=== PATIENT | male | born 1975 | race African-American/Black ===

== ENCOUNTER 2022-06-10 21:43 | Emergency (ER) | payer OTHER ==
[2022-06-10] MEDS ORDERED: IBUPROFEN 800 MG TAB PO STA (22:10)
[2022-06-10] MEDS ORDERED: SODIUM CHLORIDE 0.9% 500 ML 500 ML IV STA (22:16)
[2022-06-10] MEDS ORDERED: MORPHINE SULFATE 4 MG/ML SYRINGE IVP STA (22:17)
[2022-06-10 22:35] LABS: Basophils % (A) 0 %; Eosinophils # (A) 0.1 k/uL (0-0.7); Eosinophils % (A) 2 %; HGB 14.9 gm/dL (13.0-17.5); Lymphocytes # (A) 0.5 k/uL (1.0-4.8); Lymphocytes % (A) 5 %; MCH 30.4 pg (25.0-35.0); MCHC 34.6 g/dL (31.0-37.0); Mean Platelet Volume 7.4; Monocytes # (A) 0.3 k/uL (0-1.0); Monocytes % (A) 4 %; Neutrophils # (A) 7.2 k/uL (1.3-7.7); Neutrophils % (A) 88 %; Platelet Count 259 k/uL (150-450); RBC 4.88 m/uL (4.30-5.90); RDW 13.4 % (11.5-15.5); WBC 8.3 k/uL (3.8-10.6)
--- NOTE | 2022-06-10 22:35 | ED ---
General Adult HPI <Caleb Howell - Last Filed: 06/11/22 00:29> - General Source: patient Mode of arrival: wheelchair Limitations: no limitations <Silvia Cohen - Last Filed: 06/11/22 10:04> - General Chief complaint: Upper Respiratory Infection Stated complaint: Chest pain/SOB Time Seen by Provider: 06/10/22 21:56 - History of Present Illness Initial comments: 47-year-old male past medical history of asthma who presents to the emergency department with shortness of breath. States that his symptoms started this morning. He reports a nonproductive cough, congestion and shortness of breath. He attempted use his nebulizer without any improvement in his symptoms. He has a fever. He took some TheraFlu. Denies taking any other medications for his fever. He denies any sick contacts with similar symptoms. Admits to chest wall pain bilaterally from coughing. No cardiac history. Denies any calf pain or swelling. No nausea or vomiting. Denies ear pain or sore throat. No neck pain or abdominal pain. He wears a C-pap at night. No other alleviating, precipitating or modifying factors (Silvia Cohen) - Related Data Home Medications Medication Instructions Recorded Confirmed No Known Home Medications 06/10/22 06/10/22 Allergies Allergy/AdvReac Type Severity Reaction Status Date / Time No Known Allergies Allergy Verified 06/10/22 22:29 Review of Systems ROS Other: All systems not noted in ROS Statement are negative. <Caleb Howell - Last Filed: 06/11/22 00:29> ROS Other: All systems not noted in ROS Statement are negative. <Silvia Cohen - Last Filed: 06/11/22 10:04> ROS Statement: Those systems with pertinent positive or pertinent negative responses have been documented in the HPI. Past Medical History Past Medical History: No Reported History History of Any Multi-Drug Resistant Organisms: None Reported Past Surgical History: No Surgical Hx Reported Past Psychological History: No Psychological Hx Reported Smoking Status: Current every day smoker Past Alcohol Use History: Occasional Past Drug Use History: None Reported <Silvia Cohen - Last Filed: 06/11/22 10:04> General Exam General appearance: alert, in no apparent distress, anxious Head exam: Present: atraumatic, normocephalic, normal inspection Eye exam: Present: normal appearance, PERRL, EOMI. Absent: scleral icterus, conjunctival injection, periorbital swelling ENT exam: Present: normal exam, mucous membranes moist Neck exam: Present: normal inspection. Absent: tenderness, meningismus, lymphadenopathy Respiratory exam: Present: normal lung sounds bilaterally, wheezes, accessory muscle use, decreased breath sounds, prolonged expiratory. Absent: respiratory distress, rales, rhonchi, stridor Cardiovascular Exam: Present: normal rhythm, tachycardia, normal heart sounds. Absent: systolic murmur, diastolic murmur, rubs, gallop, clicks GI/Abdominal exam: Present: soft, normal bowel sounds. Absent: distended, tenderness, guarding, rebound, rigid Extremities exam: Present: normal inspection, full ROM, normal capillary refill. Absent: tenderness, pedal edema, joint swelling, calf tenderness Back exam: Present: normal inspection Neurological exam: Present: alert, oriented X3, CN II-XII intact Psychiatric exam: Present: normal affect, normal mood Skin exam: Present: warm, dry, intact, normal color. Absent: rash <Caleb Howell B - Last Filed: 06/11/22 00:29> Limitations: no limitations General appearance: alert, in no apparent distress Head exam: Present: atraumatic, normocephalic, normal inspection Eye exam: Present: normal appearance, PERRL, EOMI. Absent: scleral icterus, conjunctival injection, periorbital swelling ENT exam: Present: normal exam, mucous membranes moist Neck exam: Present: normal inspection. Absent: tenderness, meningismus, lymphadenopathy Respiratory exam: Present: wheezes (at bases), chest wall tenderness (bilaterally below both costophrenic angles), accessory muscle use, other (tachypnia). Absent: respiratory distress, rales, rhonchi, stridor Cardiovascular Exam: Present: normal rhythm, tachycardia, normal heart sounds. Absent: systolic murmur, diastolic murmur, rubs, gallop, clicks GI/Abdominal exam: Present: soft, normal bowel sounds. Absent: distended, tenderness, guarding, rebound, rigid Extremities exam: Present: normal inspection, full ROM, normal capillary refill. Absent: tenderness, pedal edema, joint swelling, calf tenderness Back exam: Present: normal inspection Neurological exam: Present: alert, oriented X3, CN II-XII intact Psychiatric exam: Present: normal affect, normal mood Skin exam: Present: warm, dry, intact, normal color. Absent: rash <Silvia Cohen - Last Filed: 06/11/22 10:04> Course <Caleb Howell - Last Filed: 06/11/22 00:29> Vital Signs 06/10/22 06/10/22 06/10/22 21:51 22:04 22:08 Temperature 102.7 F H 102 F H Pulse Rate 103 H 110 H Respiratory 22 20 24 Rate Blood Pressure 169/84 138/77 O2 Sat by Pulse 93 L 95 Oximetry 06/10/22 06/10/22 06/10/22 23:00 23:16 23:19 Temperature Pulse Rate 100 108 H 104 H Respiratory 20 Rate Blood Pressure 95/60 O2 Sat by Pulse 99 Oximetry 06/11/22 06/11/22 06/11/22 00:31 00:32 00:40 Temperature 99.8 F H Pulse Rate 90 95 82 Respiratory 26 H Rate Blood Pressure 100/60 O2 Sat by Pulse 97 Oximetry - Reevaluation(s) Reevaluation #1: 06/11/22 00:13 medical records reviewed (Caleb Howell) Reevaluation #2: 06/11/22 00:13 Patient informed of results and questions are answered (Caleb Howell) - Consultations Consultation #1: Spoke with admitting physicians who agree to admit this patient (Caleb Howell) EKG Findings - EKG Comments: EKG Findings:: A 12-lead EKG was performed and interpreted by me as showing the following: Rate is 103, and rhythm is normal sinus. There are normal QRS complexes and normal R-wave progression. IN interval 177. QRS 85. Qtc 386. Inverted t wave 2, 3, avf, v5-v6. <Silvia Cohen - Last Filed: 06/11/22 10:04> Medical Decision Making - Lab Data Result diagrams: 06/10/22 22:19 06/10/22 22:19 - Radiology Data Radiology results: report reviewed (Chest x-rays negative for acute disease), image reviewed <Caleb Howell - Last Filed: 06/11/22 00:29> - Lab Data Result diagrams: 06/10/22 22:19 06/10/22 22:19 <Silvia Cohen - Last Filed: 06/11/22 10:04> - Medical Decision Making 47 male persistent fever shortness of breath cough or congestion COPD exacerbation complicated with pneumonia.. Dehydrated and decreasing blood pressure. Patient will be admitted for supportive care (Caleb Howell) Upon arrival patient was placed into room 8. A thorough history and physical exam was performed. IV access is established. He is given a liter bolus of normal saline. He is also given 800 mg of Tylenol for fever and 4 mg of morphine for pain control. Laboratory studies are conducted. Patient is swabbed for covid and influenza. 12-lead EKG was performed. Chest x-ray is ordered. He will be signed out to Dr. Howell for further evaluation and renny mcdonald. (Silvia Cohen) - Lab Data Lab Results 06/10/22 06/10/22 06/10/22 Range/Units 22:04 22:04 22:19 WBC 8.3 (3.8-10.6) k/uL RBC 4.88 (4.30-5.90) m/uL Hgb 14.9 (13.0-17.5) gm/dL Hct 43.0 (39.0-53.0) % MCV 88.0 (80.0-100.0) fL MCH 30.4 (25.0-35.0) pg MCHC 34.6 (31.0-37.0) g/dL RDW 13.4 (11.5-15.5) % Plt Count 259 (150-450) k/uL MPV 7.4 Neutrophils % 88 % Lymphocytes % 5 % Monocytes % 4 % Eosinophils % 2 % Basophils % 0 % Neutrophils # 7.2 (1.3-7.7) k/uL Lymphocytes # 0.5 L (1.0-4.8) k/uL Monocytes # 0.3 (0-1.0) k/uL Eosinophils # 0.1 (0-0.7) k/uL Basophils # 0.0 (0-0.2) k/uL PT (9.0-12.0) sec INR (<1.2) APTT (22.0-30.0) sec Sodium (137-145) mmol/L Potassium (3.5-5.1) mmol/L Chloride (98-107) mmol/L Carbon Dioxide (22-30) mmol/L Anion Gap mmol/L BUN (9-20) mg/dL Creatinine (0.66-1.25) mg/dL Est GFR (CKD-EPI)AfAm (>60 ml/min/1.73 sqM) Est GFR (CKD-EPI)NonAf (>60 ml/min/1.73 sqM) Glucose (74-99) mg/dL Calcium (8.4-10.2) mg/dL Total Bilirubin (0.2-1.3) mg/dL AST (17-59) U/L ALT (4-49) U/L Alkaline Phosphatase (38-126) U/L Troponin I (0.000-0.034) ng/mL Total Protein (6.3-8.2) g/dL Albumin (3.5-5.0) g/dL Coronavirus (PCR) Not Detected (Not Detectd) Influenza Type A RNA Detected H (Not Detectd) Influenza Type B (PCR) Not Detected (Not Detectd) 06/10/22 06/10/22 06/10/22 Range/Units 22:19 22:19 22:19 WBC (3.8-10.6) k/uL RBC (4.30-5.90) m/uL Hgb (13.0-17.5) gm/dL Hct (39.0-53.0) % MCV (80.0-100.0) fL MCH (25.0-35.0) pg MCHC (31.0-37.0) g/dL RDW (11.5-15.5) % Plt Count (150-450) k/uL MPV Neutrophils % % Lymphocytes % % Monocytes % % Eosinophils % % Basophils % % Neutrophils # (1.3-7.7) k/uL Lymphocytes # (1.0-4.8) k/uL Monocytes # (0-1.0) k/uL Eosinophils # (0-0.7) k/uL Basophils # (0-0.2) k/uL PT 10.1 (9.0-12.0) sec INR 0.9 (<1.2) APTT 27.8 (22.0-30.0) sec Sodium 139 (137-145) mmol/L Potassium 4.2 (3.5-5.1) mmol/L Chloride 104 (98-107) mmol/L Carbon Dioxide 26 (22-30) mmol/L Anion Gap 9 mmol/L BUN 16 (9-20) mg/dL Creatinine 1.33 H (0.66-1.25) mg/dL Est GFR (CKD-EPI)AfAm 74 (>60 ml/min/1.73 sqM) Est GFR (CKD-EPI)NonAf 64 (>60 ml/min/1.73 sqM) Glucose 117 H (74-99) mg/dL Calcium 9.1 (8.4-10.2) mg/dL Total Bilirubin 0.6 (0.2-1.3) mg/dL AST 41 (17-59) U/L ALT 53 H (4-49) U/L Alkaline Phosphatase 96 (38-126) U/L Troponin I <0.012 (0.000-0.034) ng/mL Total Protein 7.4 (6.3-8.2) g/dL Albumin 4.4 (3.5-5.0) g/dL Coronavirus (PCR) (Not Detectd) Influenza Type A RNA (Not Detectd) Influenza Type B (PCR) (Not Detectd) Disposition Is patient prescribed a controlled substance at d/c from ED?: No Time of Disposition: 00:30 <Caleb Howell - Last Filed: 06/11/22 00:29> <Silvia Cohen - Last Filed: 06/11/22 10:04> Clinical Impression: Influenza, Fever, Bronchitis, Acute exacerbation of COPD with asthma Disposition: ADMITTED IP TO THIS HOSP Condition: Fair Instructions (If sedation given, give patient instructions): Influenza (ED) Referrals: None,Stated [Primary Care Provider] - 1-2 days
[2022-06-10 22:46] LABS: Albumin 4.4 g/dL (3.5-5.0); Calcium 9.1 mg/dL (8.4-10.2); Potassium 4.2 mmol/L (3.5-5.1); Total Bilirubin 0.6 mg/dL (0.2-1.3); Total Protein 7.4 g/dL (6.3-8.2)
[2022-06-10 22:51] LABS: INR 0.9 (<1.2); Partial Thromboplastin Time 27.8 sec (22.0-30.0); Prothrombin Time 10.1 sec (9.0-12.0)
[2022-06-10] MEDS ORDERED: OSELTAMIVIR 75 MG CAP PO STA (23:07)
[2022-06-10] MEDS ORDERED: methylPREDNISolone SOD SUCCI 125 MG/2 ML VIAL IV STA (23:07)
[2022-06-10] MEDS ORDERED: SODIUM CHLORIDE 0.9% 500 ML 500 ML IV ONE (23:07)
[2022-06-10] MEDS ORDERED: IPRATROPIUM-ALBUTEROL 3 ML NEB INHALATION STA (23:07)
[2022-06-11] MEDS ORDERED: IPRATROPIUM-ALBUTEROL 3 ML NEB INHALATION STA (00:17)
[2022-06-11] MEDS ORDERED: ACETAMINOPHEN TAB 500 MG TAB PO STA (00:17)
--- NOTE | 2022-06-11 00:22 | XR ---
EXAMINATION TYPE: XR chest 2V DATE OF EXAM: 06/11/2022 COMPARISON: NONE HISTORY: Cough TECHNIQUE: 2 views FINDINGS: Heart and mediastinum are normal. Lungs are clear. Diaphragm is normal. Bony thorax is inta ct. There are chest leads. IMPRESSION: Normal chest.
[2022-06-11] MEDS ORDERED: ACETAMINOPHEN TAB 325 MG TAB PO PRN (00:27)
[2022-06-11] MEDS ORDERED: IBUPROFEN 400 MG TAB PO PRN (00:27)
[2022-06-11] MEDS ORDERED: SODIUM CHLORIDE 0.9% 500 ML 500 ML IV STA (00:27)
[2022-06-11] MEDS ORDERED: NALOXONE 0.4 MG/ML 1 ML VIAL IV PRN (00:27)
[2022-06-11] MEDS ORDERED: MORPHINE SULFATE 4 MG/ML SYRINGE IV PRN (00:27)
[2022-06-11] MEDS ORDERED: ONDANSETRON 4 MG/2 ML VIAL IVP PRN (00:27)
[2022-06-11] MEDS ORDERED: SODIUM CHLORIDE 0.9% 1,000 ML IV STA (00:27)
[2022-06-11] MEDS ORDERED: SODIUM CHLORIDE 0.9% 1,000 ML IV SCH (00:30)
[2022-06-11 00:32] VITALS: BP 100/60; RESP 26; TEMP 99.8
[2022-06-11 00:41] VITALS: PULSE 82
[2022-06-11] MEDS ORDERED: OSELTAMIVIR 75 MG CAP PO SCH (09:00)
== END 2022-06-11 01:46 | disposition other institution (70) ==
LOC: EC 21:43 → 6NMEDSUR 06-11 00:27 → UNDOADMIN 06-11 00:27 → EC 06-11 01:46
DX: J10.1 Influenza due to other identified influenza virus with other respiratory manifestations (principal); J44.1 Chronic obstructive pulmonary disease with (acute) exacerbation; F17.200 Nicotine dependence, unspecified, uncomplicated; Z20.822 Contact with and (suspected) exposure to COVID-19
CPT/HCPCS: 36415; 71046; 80053; 84484; 85025; 85610; 85730; 87502; 87635; 93005; 94640; 96361; 96374; 96375; 99285

== ENCOUNTER 2024-06-27 07:39 | Emergency (ER) | payer OTHER ==
[2024-06-27 07:47] VITALS: TEMP 98
--- NOTE | 2024-06-27 08:02 | ED ---
General Adult HPI - General Chief complaint: Shortness of Breath Stated complaint: SOB,R sided abd pain Time Seen by Provider: 06/27/24 07:43 Source: patient, RN notes reviewed, old records reviewed Mode of arrival: ambulatory Limitations: no limitations - History of Present Illness Initial comments: 49-year-old male presenting with cough and congestion over the past 9 days. Patient was seen at urgent care prescribed antibiotics and steroids. He is had productive cough throughout this illness. He has developed right-sided chest pain and pain in the right side of the abdomen. No reported fever. No vomiting. - Related Data Previous Rx's Medication Instructions Recorded Albuterol Inhaler [Ventolin Hfa 1 - 2 puff INHALATION Q4HR PRN #1 06/27/24 Inhaler] each predniSONE 50 mg PO DAILY #5 tab 06/27/24 Allergies Allergy/AdvReac Type Severity Reaction Status Date / Time No Known Allergies Allergy Verified 06/27/24 09:08 Review of Systems ROS Statement: Those systems with pertinent positive or pertinent negative responses have been documented in the HPI. ROS Other: All systems not noted in ROS Statement are negative. Past Medical History Past Medical History: Asthma, Pneumonia, Sleep Apnea/CPAP/BIPAP History of Any Multi-Drug Resistant Organisms: None Reported Past Surgical History: No Surgical Hx Reported Past Psychological History: No Psychological Hx Reported Smoking Status: Current every day smoker Past Alcohol Use History: Occasional Past Drug Use History: None Reported General Exam Limitations: no limitations General appearance: alert, in no apparent distress Head exam: Present: atraumatic, normocephalic Eye exam: Present: normal appearance, PERRL Respiratory exam: Present: wheezes, rhonchi, chest wall tenderness (Right anterior chest wall). Absent: respiratory distress Cardiovascular Exam: Present: regular rate, normal rhythm GI/Abdominal exam: Present: soft, distended. Absent: tenderness Extremities exam: Present: normal inspection, normal capillary refill. Absent: calf tenderness Neurological exam: Present: alert, oriented X3, CN II-XII intact. Absent: motor sensory deficit Psychiatric exam: Present: normal affect, normal mood Skin exam: Present: warm, dry, intact. Absent: cyanosis, diaphoretic Course Vital Signs 06/27/24 06/27/24 06/27/24 07:42 07:49 09:04 Temperature 98 F Pulse Rate 92 92 Respiratory 22 20 Rate Blood Pressure 152/92 O2 Sat by Pulse 96 Oximetry 06/27/24 09:16 Temperature Pulse Rate 90 Respiratory Rate Blood Pressure O2 Sat by Pulse Oximetry Medical Decision Making - Medical Decision Making Was pt. sent in by a medical professional or institution (STEPHANY Fisher, MANAGER INTERMEDIATE, urgent care, hospital, or [place] [facility] facility...) When possible be specific @ -No Did you speak to anyone other than the patient for history (EMS, parent, family, police, friend...)? What history was obtained from this source @ -No Did you review nursing and triage notes (agree or disagree)? Why? @ -I reviewed and agree with nursing and triage notes Were old charts reviewed (outside hosp., previous admission, EMS record, old EKG, old radiological studies, urgent care reports/EKG's, [place] [facility] facility records)? Report findings @ -No old charts were reviewed Differential Dyspnea: Coronary syndrome, arrhythmia, tamponade, asthma, COPD, pulmonary embolism, pneumonia, pneumothorax, pulmonary effusion, anaphylaxis, diabetic ketoacidosis, flailed chest, pulmonary contusion, diaphragmatic rupture, anemia, neuromuscular, this is not meant to be an all-inclusive list. EKG interpreted by me (3pts min.). @Sinus rhythm rate of 78, T wave inversion in V5 and V6 no ST segment elevation, NM interval 177, QRS duration 88, QTc 402 X-rays interpreted by me (1pt min.). @ -[Chest x-ray negative for acute cardiopulmonary findings no focal pneumonia or pneumothorax CT interpreted by me (1pt min.). @ -None done U/S interpreted by me (1pt. min.). @ -None done What testing was considered but not performed or refused? (CT, X-rays, U/S, labs)? Why? @ -None What meds were considered but not given or refused? Why? @ -None Did you discuss the management of the patient with other professionals (professionals i.e. STEPHANY Fisher, MANAGER INTERMEDIATE, lab, RT, psych nurse, social worker assistant, lifter driver, teacher, alumni relations officer, counter caser)? Give summary @ -No Was smoking cessation discussed for >3mins.? @ -Yes, smoking sensation, greater than 30 minutes Was critical care preformed (if so, how long)? @ -No Were there social determinants of health that impacted care today? How? (Homelessness, low income, unemployed, alcoholism, drug addiction, transpo rtation, low edu. Level, literacy, decrease access to med. care, detention, rehab)? @ -No Was there de-escalation of care discussed even if they declined (Discuss DNR or withdrawal of care, Hospice)? DNR status @ -No What co-morbidities impacted this encounter? (DM, HTN, Smoking, COPD, CAD, Cancer, CVA, ARF, Chemo, Hep., AIDS, mental health diagnosis, sleep apnea, morbid obesity)? @ -[Asthma, current smoker Was patient admitted / discharged? Hospital course, mention meds given and route, prescriptions, significant lab abnormalities, going to OR and other pertinent info. @ -49-year-old male presenting with cough and dyspnea, right-sided chest pain over the past 9 to 10 days. Patient completed an outpatient course of antibiotics and steroids. He has persistent cough and dyspnea. Patient is wheezing with bronchospastic cough and scattered rhonchi. Chest x-ray is negative for focal pneumonia. Patient has a normal white blood cell count, stable hemoglobin, normal D-dimer, negative troponin, negative viral swabs, normal labs in general. Patient given steroids and albuterol Atrovent in the emergency department. He will be treated with a second course of oral steroids as well as albuterol. Undiagnosed new problem with uncertain prognosis? @ -No Drug Therapy requiring intensive monitoring for toxicity (Heparin, Nitro, Insulin, Cardizem)? @ -No Were any procedures done? @ -No Diagnosis/symptom? @ -Asthma, upper respiratory infection Acute, or Chronic, or Acute on Chronic? @ -[Acute Uncomplicated (without systemic symptoms) or Complicated (systemic symptoms)? @ -Default Side effects of treatment? @ -No Exacerbation, Progression, or Severe Exacerbation? @ -No Poses a threat to life or bodily function? How? (Chest pain, [place], [place], pneumonia, PE, COPD, DKA, ARF, appy, cholecystitis, CVA, Diverticulitis, Homicidal, Suicidal, threat to staff... and all critical care pts) @ -Low risk at this time - Lab Data Result diagrams: 06/27/24 07:56 06/27/24 07:56 Lab Results 06/27/24 06/27/24 06/27/24 Range/Units 07:56 07:56 07:56 WBC 6.9 (3.8-10.6) k/uL RBC 4.81 (4.30-5.90) m/uL Hgb 14.1 (13.0-17.5) gm/dL Hct 43.3 (39.0-53.0) % MCV 90.0 (80.0-100.0) fL MCH 29.3 (25.0-35.0) pg MCHC 32.5 (31.0-37.0) g/dL RDW 13.6 (11.5-15.5) % Plt Count 387 (150-450) k/uL MPV 6.5 Neutrophils % 57 % Lymphocytes % 30 % Monocytes % 4 % Eosinophils % 7 % Basophils % 0 % Neutrophils # 3.9 (1.3-7.7) k/uL Lymphocytes # 2.1 (1.0-4.8) k/uL Monocytes # 0.3 (0-1.0) k/uL Eosinophils # 0.5 (0-0.7) k/uL Basophils # 0.0 (0-0.2) k/uL PT 10.3 (10.0-12.5) sec INR 0.9 (<1.2) APTT 31.3 H (22.0-30.0) sec D-Dimer 0.45 (<0.60) mg/L FEU Sodium 141 (137-145) mmol/L Potassium 4.2 (3.5-5.1) mmol/L Chloride 104 (98-107) mmol/L Carbon Dioxide 30 (22-30) mmol/L Anion Gap 7 mmol/L BUN 10 (9-20) mg/dL Creatinine 1.21 (0.66-1.25) mg/dL Est GFR (CKD-EPI)AfAm 82 (>60 ml/min/1.73 sqM) Est GFR (CKD-EPI)NonAf 71 (>60 ml/min/1.73 sqM) Glucose 131 H (74-99) mg/dL Plasma Lactic Acid Matty (0.7-2.0) mmol/L Calcium 9.3 (8.4-10.2) mg/dL Magnesium 2.1 (1.6-2.3) mg/dL Total Bilirubin 0.4 (0.2-1.3) mg/dL AST 26 (17-59) U/L ALT 29 (4-49) U/L Alkaline Phosphatase 84 (38-126) U/L Troponin I (0.000-0.034) ng/mL Total Protein 6.8 (6.3-8.2) g/dL Albumin 4.2 (3.5-5.0) g/dL Lipase 393 H (23-300) U/L Influenza Type A (PCR) (Not Detectd) Influenza Type B (PCR) (Not Detectd) RSV (PCR) (Not Detectd) SARS-CoV-2 (PCR) (Not Detectd) 06/27/24 06/27/24 06/27/24 Range/Units 07:56 07:56 07:56 WBC (3.8-10.6) k/uL RBC (4.30-5.90) m/uL Hgb (13.0-17.5) gm/dL Hct (39.0-53.0) % MCV (80.0-100.0) fL MCH (25.0-35.0) pg MCHC (31.0-37.0) g/dL RDW (11.5-15.5) % Plt Count (150-450) k/uL MPV Neutrophils % % Lymphocytes % % Monocytes % % Eosinophils % % Basophils % % Neutrophils # (1.3-7.7) k/uL Lymphocytes # (1.0-4.8) k/uL Monocytes # (0-1.0) k/uL Eosinophils # (0-0.7) k/uL Basophils # (0-0.2) k/uL PT (10.0-12.5) sec INR (<1.2) APTT (22.0-30.0) sec D-Dimer (<0.60) mg/L FEU Sodium (137-145) mmol/L Potassium (3.5-5.1) mmol/L Chloride (98-107) mmol/L Carbon Dioxide (22-30) mmol/L Anion Gap mmol/L BUN (9-20) mg/dL Creatinine (0.66-1.25) mg/dL Est GFR (CKD-EPI)AfAm (>60 ml/min/1.73 sqM) Est GFR (CKD-EPI)NonAf (>60 ml/min/1.73 sqM) Glucose (74-99) mg/dL Plasma Lactic Acid Matty 1.0 (0.7-2.0) mmol/L Calcium (8.4-10.2) mg/dL Magnesium (1.6-2.3) mg/dL Total Bilirubin (0.2-1.3) mg/dL AST (17-59) U/L ALT (4-49) U/L Alkaline Phosphatase (38-126) U/L Troponin I <0.012 (0.000-0.034) ng/mL Total Protein (6.3-8.2) g/dL Albumin (3.5-5.0) g/dL Lipase (23-300) U/L Influenza Type A (PCR) Not Detected (Not Detectd) Influenza Type B (PCR) Not Detected (Not Detectd) RSV (PCR) Not Detected (Not Detectd) SARS-CoV-2 (PCR) Not Detected (Not Detectd) Disposition Clinical Impression: Asthma with acute exacerbation, Upper respiratory infection Disposition: HOME SELF-CARE Condition: Good Instructions (If sedation given, give patient instructions): Asthma (ED) Prescriptions: predniSONE 50 mg PO DAILY #5 tab Albuterol Inhaler [Ventolin Hfa Inhaler] 1 - 2 puff INHALATION Q4HR PRN #1 each PRN Reason: Shortness Of Breath Is patient prescribed a controlled substance at d/c from ED?: No Referrals: None,Stated [Primary Care Provider] - 1-2 days Carlos Enrique Martinez MD [STAFF PHYSICIAN] - 1-2 days Time of Disposition: 09:21
[2024-06-27] MEDS: KETOROLAC 15 MG/ML 1 ML VIAL IVP STA (08:08)
[2024-06-27 08:14] LABS: Basophils % (A) 0 %; Eosinophils # (A) 0.5 k/uL (0-0.7); Eosinophils % (A) 7 %; HCT 43.3 % (39.0-53.0); HGB 14.1 gm/dL (13.0-17.5); Lymphocytes # (A) 2.1 k/uL (1.0-4.8); Lymphocytes % (A) 30 %; MCH 29.3 pg (25.0-35.0); MCHC 32.5 g/dL (31.0-37.0); Mean Platelet Volume 6.5; Monocytes # (A) 0.3 k/uL (0-1.0); Monocytes % (A) 4 %; Neutrophils # (A) 3.9 k/uL (1.3-7.7); Neutrophils % (A) 57 %; Platelet Count 387 k/uL (150-450); RBC 4.81 m/uL (4.30-5.90); RDW 13.6 % (11.5-15.5); WBC 6.9 k/uL (3.8-10.6)
[2024-06-27 08:27] LABS: INR 0.9 (<1.2); Partial Thromboplastin Time 31.3 sec (22.0-30.0); Prothrombin Time 10.3 sec (10.0-12.5)
[2024-06-27 08:38] LABS: ALT 29 U/L (4-49); AST 26 U/L (17-59); African American GFR (CKD) 82 (>60 ml/min/1.73 sqM); Albumin 4.2 g/dL (3.5-5.0); Alkaline Phosphatase 84 U/L (38-126); Anion Gap 7 mmol/L; Blood Urea Nitrogen 10 mg/dL (9-20); Calcium 9.3 mg/dL (8.4-10.2); Carbon Dioxide 30 mmol/L (22-30); Chloride 104 mmol/L (98-107); Glucose 131 mg/dL (74-99); Lipase 393 U/L (23-300); Magnesium 2.1 mg/dL (1.6-2.3); Non-African American GFR(CKD) 71 (>60 ml/min/1.73 sqM); Potassium 4.2 mmol/L (3.5-5.1); Sodium 141 mmol/L (137-145); Total Bilirubin 0.4 mg/dL (0.2-1.3); Total Protein 6.8 g/dL (6.3-8.2)
--- NOTE | 2024-06-27 08:41 | XR ---
EXAMINATION TYPE: XR chest 2V DATE OF EXAM: 06/27/2024 8:32 AM COMPARISON: Chest x-ray June 11, 2022 CLINICAL INDICATION: Male, 49 years old with history of difficulty breathing, TECHNIQUE: Frontal and lateral views of the chest are obtained. FINDINGS: There is no suspicious new focal air space opacity, pleural effusion, or pneumothorax seen . The cardiac silhouette size is stable and within normal limits. The osseous structures are intac t. IMPRESSION: No acute cardiopulmonary process. No significant change from most recent prior. [facility], , 06/27/2024 8:38 AM
[2024-06-27] MEDS: IPRATROPIUM-ALBUTEROL 3 ML NEB INHALATION STA (09:01)
[2024-06-27] MEDS: ALBUTEROL NEBULIZED 2.5 MG/3 ML INHALATION STA (09:01)
[2024-06-27] MEDS: DEXAMETHASONE SOD PHOSPHATE 10 MG/ML 1 ML VIAL IV STA (09:07)
[2024-06-27 09:40] VITALS: BP 133/76; PULSE 78; RESP 18
== END 2024-06-27 09:40 | disposition home or self-care (01) ==
LOC: EC 07:39
DX: J45.901 Unspecified asthma with (acute) exacerbation (principal); J06.9 Acute upper respiratory infection, unspecified; F17.200 Nicotine dependence, unspecified, uncomplicated
CPT/HCPCS: 36415; 94640; 93005; 85379; 80053; 83605; 83690; 83735; 84484; 85025; 85610; 85730; 87636; 71046; 99285; 96374; 96375; 99406; J1100; J1885